=== PATIENT | male | born 1995 | race Caucasian/White ===

== ENCOUNTER 2021-01-24 21:55 | Emergency (ER) | payer SELFPAY ==
[2021-01-24 22:05] VITALS: BP 105/51; PULSE 100; TEMP 100.4
[2021-01-24 23:56] VITALS: BMI 21.4
== END 2021-01-25 00:34 | disposition home or self-care (01) ==
LOC: JER 21:55
DX: R50.9 Fever, unspecified (principal); R11.2 Nausea with vomiting, unspecified; R19.7 Diarrhea, unspecified; R05.9 Cough, unspecified
CPT/HCPCS: 99283-25; C9803; U0003; U0005

== ENCOUNTER 2021-05-11 09:16 | Emergency (ER) | payer OTHER ==
[2021-05-11 09:38] VITALS: TEMP 97.9; BMI 19.2
[2021-05-11] MEDS ORDERED: ACETAMINOPHEN 1000 MG/100 ML BAG IVPB ONE (10:06)
[2021-05-11] MEDS ORDERED: LIDOCAINE 5% TOPICAL PATCH TP ONE (10:06)
[2021-05-11] MEDS ORDERED: ACETAMINOPHEN INJECTION 100 ML IVPB ONE (10:32)
[2021-05-11] MEDS ORDERED: LIDOCAINE 5% TOPICAL PATCH ONE (10:32)
[2021-05-11 11:10] LABS: BASO % 0.2 % (0-2.0); EOS % 1.6 % (0-4.5); HEMATOCRIT 40.5 % (35.4-49); LYMPH % 42.2 % (8-40); MCH 32.1 pg (25.7-33.7); MCHC 34.5 g/dl (32.0-35.9); MEAN PLT VOLUME 8.5 fl (7.5-11.1); MONO % 10.1 % (3.8-10.2); NEUT % 45.9 % (42.8-82.8); PLATELET COUNT 205 10^3/uL (134-434); RBC 4.35 M/mm3 (4.00-5.60); RDW 12.9 % (11.9-15.9); WHITE BLOOD COUNT 6.9 K/mm3 (4.0-10.0)
[2021-05-11 11:15] VITALS: BP 121/74; PULSE 64
[2021-05-11 11:27] LABS: CALCIUM 8.8 mg/dL (8.5-10.1)
[2021-05-11 11:28] LABS: ALBUMIN 3.9 g/dl (3.4-5.0); BLOOD UREA NITROGEN 11.1 mg/dL (7-18)
[2021-05-11 11:31] LABS: CREATININE 1.1 mg/dL (0.55-1.3)
[2021-05-11 11:33] LABS: BILIRUBIN,TOTAL 0.4 mg/dL (0.2-1); TOT PROT 7.4 g/dl (6.4-8.2)
[2021-05-11] MEDS ORDERED: LIDOCAINE PATCH REMOVAL MC ONE (22:00)
== END 2021-05-11 14:11 | disposition home or self-care (01) ==
LOC: JER 09:16
PROC: 3E0333Z Introduction of Anti-inflammatory into Peripheral Vein, Percutaneous Approach (ICD-10-PCS; principal; 2021-05-11)
DX: R07.9 Chest pain, unspecified (principal)
CPT/HCPCS: 36415; 71046-TC-FY; 80053; 84484; 85025; 93005; 93010; 99285-25